=== PATIENT | male | born 1970 | race Caucasian/White ===

== ENCOUNTER 2017-05-19 08:53 | Emergency (ER) | payer MEDICARE ==
[~2017-05-19] VITALS: Ht 175.3 cm; Wt 87.0 kg
[~2017-05-19 08:53] MED LIST: HYDR-762 PO
[2017-05-19 08:54] VITALS: Ht 175.3 cm; Wt 87.0 kg
[2017-05-19] MEDS ORDERED: KETOROLAC 30 MG INJ IV STA (09:15)
[2017-05-19] MEDS ORDERED: KETOROLAC 30 MG INJ IM STA (09:17)
[2017-05-19 11:04] LABS: BASOPHILS % 0.5 % (0.0-2.0); EOSINOPHILS # 0.1 10^3/ul (0.0-0.5); EOSINOPHILS % 1.2 % (0.0-7.0); HEMATOCRIT 47.2 % (42.0-52.0); HEMOGLOBIN 16.8 g/dl (14.0-18.0); LYMPHOCYTES # 2.7 10^3/ul (0.8-2.9); LYMPHOCYTES % 31.8 % (15.0-51.0); MEAN CORPUSCULAR HEMOGLOBIN 32.1 pg (29.0-33.0); MEAN CORPUSCULAR HGB CONC 35.6 g/dl (32.0-37.0); MEAN CORPUSCULAR VOLUME 90.1 fl (82.0-101.0); MEAN PLATELET VOLUME 11.5 fl (7.4-10.4); MONOCYTE # 0.8 10^3/ul (0.3-0.9); MONOCYTES % 9.5 % (0.0-11.0); NEUTROPHIL # 4.8 10^3/ul (1.6-7.5); NEUTROPHILS % 56.8 % (39.0-77.0); PLATELET COUNT 167 10^3/UL (140-415); RED BLOOD COUNT 5.24 10^6/ul (4.70-6.10); RED CELL DISTRIBUTION WIDTH 12.1 % (11.5-14.5); WHITE BLOOD COUNT 8.4 10^3/ul (4.8-10.8)
[2017-05-19 11:20] LABS: ALBUMIN 4.3 g/dl (3.3-4.9); ALBUMIN/GLOBULIN RATIO 1.26; BILIRUBIN,INDIRECT 1.1 mg/dl (0-1.1); BILIRUBIN,TOTAL 1.1 mg/dl (0.2-1.3); CALCIUM 9.1 mg/dl (8.4-10.2); CREATININE 0.65 mg/dl (0.61-1.24); POTASSIUM 3.8 mmol/L (3.5-5.1); TOTAL PROTEIN 7.7 g/dl (6.1-8.1)
--- NOTE | 2017-05-19 12:24 | RADRPT ---
PROCEDURE: CT Neck with contrast CLINICAL INDICATION: Swelling. Pain. TECHNIQUE: CT of the neck was performed following the intravenous administration of 90 cc Visipaqu e 320 IV Contrast. Axial images were obtained through the neck with multiplanar reformatted images g enerated from the axial acquired data. The administered radiation dose was CTDI vol = 9.01 mGy, DLP = 300.09 mGy-cm. One or more of the following dose reduction techniques were used: Automated exposu re control, Adjustment of the mA and/or kV according to patient size, or Use of iterative reconstruc tion technique. COMPARISON: There are no similar studies submitted for comparison. FINDINGS: SKULL: The visualized portions of the brain are grossly unremarkable.The visualized orbits are unrem arkable.The visualized paranasal sinuses are well aerated.The bilateral mastoid air cells are within normal limits. PAROTID GLANDS: Unremarkable. SUBMANDIBULAR GLANDS: Unremarkable. THYROID GLAND: Unremarkable. VASCULATURE: The bilateral vascular structures are patent. LYMPH NODES: Multiple small lymph nodes are identified in the neck in levels I-V which are not patho logically enlarged or necrotic. The lymph nodes are relatively bilateral and symmetric in distributi on. AERODIGESTIVE TRACT: There is streak artifact from dental hardware limiting evaluation of the oral c avity. The glottis is closed limiting evaluation. No primary aerodigestive tract lesion is identifi ed.There are coarse calcifications within the left palatine tonsils suggesting prior infectious/infl ammatory etiologies. There is no peritonsillar or prevertebral abscess. THORAX: The lung apices are unremarkable. OSSEOUS STRUCTURES: No destructive lytic or blastic osseous lesion is identified.There is reversal o f the cervical lordosis suggesting muscle spasm. There are mild degenerative changes within the cerv ical spine. IMPRESSION: 1. No mass or fluid collection. 2. No cervical adenopathy. 3. No peritonsillar or prevertebral abscess. Further findings as detailed above. RPTAT: PP .Yfn Rodriguez MD, Date Time Electronically viewed and signed by .Yfn Rodriguez MD, on 05/19/2017 12:23 .F/
[2017-05-19] MEDS ORDERED: NAPR-260 PO (12:42)
[2017-05-19] MEDS ORDERED: NPH10OT LEFT EAR (12:43)
[2017-05-19 12:55] VITALS: BP 129/77; PULSE 77; RESP 20; TEMP 98
--- NOTE | 2017-05-19 13:38 | ERD ---
ER Documentation Chief Complaint Date/Time DATE: 05/19/17 TIME: 13:27 Chief Complaint left ear pain since yesterday HPI This is a 46-year-old male with history of diabetes type 2 on metformin and hypertension presenting to the emergency department complaining of left sided neck pain and swelling, ear pain since yesterday. Patient states the pain is 10 /10. He denies any current fevers, but states he felt like he had a fever yesterday. Patient denies sore throat, cough, chest pain or shortness of breath ROS All systems reviewed and are negative except as per history of present illness. Medications Home Meds Active Scripts Neomycin/Polymyxin/Hydrocort* (Cortisporin* Otic) 10 Ml Susp, 4 DROP LEFT EAR QID for 7 Days, EA Prov:GERTRUDE MOTT PA-C 05/19/17 Naproxen* (Naprosyn*) 500 Mg Tablet, 500 MG PO BID Y for PAIN AND/OR INFLAMMATION, #30 TAB Prov:GERTRUDE MOTT PA-C 05/19/17 Hydrocodone Bit-Acetaminophen* (Galloway*) 10-325 Mg Tablet, 1 TAB PO Q6 Y for PAIN , #10 TAB Prov:TERESA GALLOWAY PA-C 11/28/15 Allergies Allergies: Coded Allergies: No Known Allergy (Unverified , 05/19/17) PMhx/Soc Hx Miscellaneous Medical Probl: Yes (CHRONIC BACK PAIN, WITH STIMULATOR, DIABETES) Hx Alcohol Use: Yes Hx Substance Use: No Hx Tobacco Use: No Smoking Status: Never smoker Physical Exam Vitals Vital Signs Date Time Temp Pulse Resp B/P Pulse Ox O2 Delivery O2 Flow Rate FiO2 05/19/17 12:55 98.0 77 20 129/77 99 05/19/17 08:54 98.3 92 20 135/86 98 Physical Exam Const: Well-developed well-nourished no acute distress Head: Atraumatic Eyes: Normal Conjunctiva ENT: Normal External Ears, Nose and Mouth. positive tragus tenderness, no mastoid tenderness Neck: Full range of motion..~ No meningismus. fullness of neck Resp: Clear to auscultation bilaterally Cardio: Regular rate and rhythm, no murmurs Abd: Soft, non tender, non distended. Normal bowel sounds Skin: No petechiae or rashes Back: No midline or flank tenderness Ext: No cyanosis, or edema Neur: Awake and alert Psych: Normal Mood and Affect Result Diagram: 05/19/17 1053 05/19/17 1053 Results 24 hrs Laboratory Tests Test 05/19/17 10:53 White Blood Count 8.410^3/ul Red Blood Count 5.2410^6/ul Hemoglobin 16.8g/dl Hematocrit 47.2% Mean Corpuscular Volume 90.1fl Mean Corpuscular Hemoglobin 32.1pg Mean Corpuscular Hemoglobin Concent 35.6g/dl Red Cell Distribution Width 12.1% Platelet Count 49623^3/UL Mean Platelet Volume 11.5fl Neutrophils % 56.8% Lymphocytes % 31.8% Monocytes % 9.5% Eosinophils % 1.2% Basophils % 0.5% Nucleated Red Blood Cells % 0.0/100WBC Neutrophils # 4.810^3/ul Lymphocytes # 2.710^3/ul Monocytes # 0.810^3/ul Eosinophils # 0.110^3/ul Basophils # 0.010^3/ul Nucleated Red Blood Cells # 0.010^3/ul Sodium Level 140mmol/L Potassium Level 3.8mmol/L Chloride Level 101mmol/L Carbon Dioxide Level 24mmol/L Anion Gap 19 Blood Urea Nitrogen 9mg/dl Creatinine 0.65mg/dl Glucose Level 173mg/dl Calcium Level 9.1mg/dl Total Bilirubin 1.1mg/dl Direct Bilirubin 0.00mg/dl Indirect Bilirubin 1.1mg/dl Aspartate Amino Transf (AST/SGOT) 70IU/L Alanine Aminotransferase (ALT/SGPT) 125IU/L Alkaline Phosphatase 70IU/L Total Protein 7.7g/dl Albumin 4.3g/dl Globulin 3.40g/dl Albumin/Globulin Ratio 1.26 Current Medications Medications (Trade) Dose Ordered Sig/Stewart Route PRN Reason Start Time Stop Time Status Last Admin Dose Admin Ketorolac Tromethamine (Toradol) 30 mg ONCE STAT IV 05/19/17 09:15 05/19/17 09:18 DC Ketorolac Tromethamine (Toradol) 30 mg ONCE STAT IM 05/19/17 09:17 05/19/17 09:19 DC 05/19/17 09:35 Procedures/MDM This is a 46-year-old male presenting emergency department complaining of left- sided neck pain and ear pain for the past couple days. On examination there was no obvious signs of deep space infections however he had a lot of fullness in the neck therefore it was difficult to assess. A CT scan of the left neck with contrast was done and did not show any evidence of abscess or deep space infections. Patient was given 1 L of fluids, Toradol and I have reassessed him and he significant feels a lot better. Patient did have tragus tenderness without any signs of otitis externa or media, but he will be treated for empirically for otitis externa with Cortisporin. I discussed with him to follow -up with his primary care physician. Discussed return the ER for any worsening sinus symptoms. Patient understands and agrees with this plan. Departure Diagnosis: Primary Impression: Neck swelling Additional Impression: Left ear pain Condition: Stable Patient Instructions: External Ear Infection (Adult) Additional Instructions: FOLLOW UP WITH YOUR PRIMARY CARE PHYSICIAN TOMORROW.Return to this facility if you are not improving as expected. Take all medicines as directed. Return to this facility if you are not improving as expected. GERTRUDE MOTT PA-C May 19, 2017 13:38
[2017-05-20] MEDS ORDERED: IODIXANOL LOCM 100 ML BTL ONE (18:02)
[2017-05-20] MEDS ORDERED: SOD CHLORIDE 0.9% 100 ML ONE (18:02)
== END 2017-05-19 12:56 | disposition home or self-care (01) ==
LOC: FTE 08:53
DX: R22.1 Localized swelling, mass and lump, neck (principal); E11.9 Type 2 diabetes mellitus without complications; I10 Essential (primary) hypertension; Z79.84 Long term (current) use of oral hypoglycemic drugs
CPT/HCPCS: 70486; 70491; 80053; 85025; 96372; 99285; J1885; Q9967